=== PATIENT | female | born 1975 | race Hispanic/Latino ===

== ENCOUNTER 2023-06-07 17:54 | Emergency (ER) | payer OTHER ==
[~2023-06-07] VITALS: Ht 165.1 cm; Wt 57.2 kg
[2023-06-07 18:40] VITALS: O2SAT 97
[2023-06-07] MEDS ORDERED: LEVOTHYROXINE75 MCG PO (18:50)
[2023-06-07] MEDS ORDERED: VITAMIN D325 MCG (18:50)
[2023-06-07] MEDS ORDERED: SIMVASTATIN10 MG PO (18:50)
[2023-06-07] MEDS ORDERED: OMEPRAZOLE40 MG PO (18:50)
[2023-06-07] MEDS ORDERED: ALTOPREV40 MG PO (18:50)
[2023-06-07] MEDS ORDERED: BETAMETHASONE D15 GM TOP (19:29)
[2023-06-07] MEDS ORDERED: BETAMETHASONE V15 GM TOP (19:33)
== END 2023-06-07 19:56 | disposition home or self-care (01) ==
LOC: FSED 18:23
DX: L25.9 Unspecified contact dermatitis, unspecified cause (principal); E78.5 Hyperlipidemia, unspecified; E03.9 Hypothyroidism, unspecified; Z85.3 Personal history of malignant neoplasm of breast
CPT/HCPCS: 99282